=== PATIENT | male | born 1935 | race Caucasian/White ===

== ENCOUNTER 2019-07-16 05:29 | Day surgery (SDC) | payer OTHER ==
[~2019-07-16] VITALS: Ht 165.1 cm; Wt 65.3 kg
[~2019-07-16 05:29] MED LIST: ASPI-231 PO; LINA5TAB PO; LISI-275 PO; PIOG15TA38 PO
[2019-07-16] MEDS ORDERED: ceFAZolin 1GM/50ML 50 ML IV ONE (06:36)
[2019-07-16] MEDS ORDERED: SUCCINYLCHOLINE CHLORIDE 20 MG/ML 10ML VIAL IV ONE (07:01)
[2019-07-16] MEDS ORDERED: ONDANSETRON HCL 4 MG/2 ML VIAL ONE (07:22)
[2019-07-16] MEDS ORDERED: SODIUM CHLORIDE LOCK 10 ML ONE (07:22)
[2019-07-16] MEDS ORDERED: MORPHINE SULFATE INJECTION 1 ML ONE (07:22)
[2019-07-16] MEDS ORDERED: NEOSTIGMINE 1 MG/ML INJ (10mg/10ML VIAL) ONE (07:22)
[2019-07-16] MEDS ORDERED: MIDAZOLAM HCL 1MG/1ML-2 ML VIAL ONE (07:22)
[2019-07-16] MEDS ORDERED: PROPOFOL 10 MG/ML 20 ML IV ONE (07:22)
[2019-07-16] MEDS ORDERED: fentaNYL CITRATE 100 MCG/2 ML VL ONE (07:22)
[2019-07-16] MEDS ORDERED: GLYCOPYRROLATE 0.2 MG/ML 1ML VIAL ONE (07:22)
[2019-07-16] MEDS ORDERED: ROCURONIUM 10MG/ML 10ML VIAL IV ONE (07:22)
[2019-07-16] MEDS ORDERED: fentaNYL CITRATE 10 ML ONE (07:22)
[2019-07-16] MEDS ORDERED: LIDOCAINE 2% (LOCAL ANESTH.) PF 5ml SDV ONE (07:30)
[2019-07-16] MEDS ORDERED: LIDOCAINE HCL 2% TOP JELLY 5ML TOP ONE (07:30)
[2019-07-16] MEDS ORDERED: BUPIVACAINE 0.25% INJ 50ML VIAL ONE (07:36)
[2019-07-16] MEDS ORDERED: fentaNYL CITRATE 100 MCG/2 ML VL IV PRN (07:45)
[2019-07-16] MEDS ORDERED: HYDROmorphone HCL 2 MG/ML VL IV PRN (07:45)
[2019-07-16] MEDS ORDERED: ACCU-CHEK COMFORT CURVE STRIP VI ONE (07:45)
[2019-07-16] MEDS ORDERED: MORPHINE SULFATE 4 MG/ML SYR/VIAL IV PRN (07:45)
[2019-07-16] MEDS ORDERED: METOCLOPRAMIDE HCL 5MG/ml INJ 2ml VIAL IV PRN (07:45)
[2019-07-16 11:09] VITALS: BP 140/75
== END 2019-07-16 11:23 | disposition home or self-care (01) ==
LOC: SUR 05:29
PROVIDERS: ATTEND Orthopaedic Surgery
DX: M75.121 Complete rotator cuff tear or rupture of right shoulder, not specified as traumatic (principal); M75.41 Impingement syndrome of right shoulder; D16.01 Benign neoplasm of scapula and long bones of right upper limb; M75.01 Adhesive capsulitis of right shoulder; M19.011 Primary osteoarthritis, right shoulder; M65.811 Other synovitis and tenosynovitis, right shoulder; M75.51 Bursitis of right shoulder; M89.8X1 Other specified disorders of bone, shoulder; I12.9 Hypertensive chronic kidney disease with stage 1 through stage 4 chronic kidney disease, or unspecified chronic kidney disease; E11.22 Type 2 diabetes mellitus with diabetic chronic kidney disease; N18.4 Chronic kidney disease, stage 4 (severe); I25.10 Atherosclerotic heart disease of native coronary artery without angina pectoris; E11.40 Type 2 diabetes mellitus with diabetic neuropathy, unspecified; Z79.82 Long term (current) use of aspirin; Z79.4 Long term (current) use of insulin; Z79.899 Other long term (current) drug therapy; Z88.8 Allergy status to other drugs, medicaments and biological substances; Z95.5 Presence of coronary angioplasty implant and graft; Z86.19 Personal history of other infectious and parasitic diseases
CPT/HCPCS: 23076; 23130; 23180; 23412; 82962; 88304; J0330; J0690; J2001; J2250; J2270; J2405; J2704; J3010; J3490

== ENCOUNTER 2020-09-01 22:02 | Inpatient (IN) | payer OTHER ==
[~2020-09-01] VITALS: Ht 177.8 cm; Wt 55.5 kg
[2020-09-02 01:22] LABS: Basophils # (auto) 0 10 ^3/uL (0-0.2); Basophils % (auto) 0.3 % (0.0-2.0); Eosinophils # (auto) 0.1 10 ^3/uL (0-0.8); Hematocrit 42.1 % (41.0-53.0); Hemoglobin 13.9 g/dL (13.5-17.5); Mean Corpuscular Hemoglobin 32.4 pg (28.0-32.0); Mean Corpuscular Volume 98.1 fL (80.0-100.0); Monocytes % (auto) 15.7 % (0.0-12.0); Neutrophils # (auto) 4.3 10 ^3/uL (1.6-8.6); Nucleated Red Blood Cells % 0.1 %; Platelet Count (auto) 195 10^3/uL (140-450); Red Blood Cells 4.29 10^6/uL (4.5-5.90); Red Cell Distribution Width 14.3 % (11.8-14.3); White Blood Cell 6.4 10^3/uL (4.4-10.8)
[2020-09-02 01:31] LABS: Alanine Aminotransferase 29 U/L (16-61); Albumin 3.6 g/dL (3.4-5.0); Anion Gap 7 (5-15); Aspartate Aminotransferase 24 U/L (15-37); BUN/Creatinine Ratio 18.1; Blood Urea Nitrogen 43 mg/dL (7-18); Calcium 9.2 mg/dL (8.5-10.1); Carbon Dioxide 26 mmol/L (21-32); Chloride 100 mmol/L (98-107); GFR African American 34 mL/min; GFR Non-African American 28 mL/min; Glucose 252 mg/dL (74-106); Magnesium 1.9 mg/dL (1.6-2.6); Potassium 4.9 mmol/L (3.5-5.1); Sodium 133 mmol/L (136-145)
[2020-09-02 01:36] LABS: Alkaline Phosphatase 67 U/L (45-117); Bilirubin, Total 0.4 mg/dL (0.2-1.0); INR 1.02 (0.9-1.15); Partial Thromboplastin Time 33.8 sec (23.0-31.2); Total Protein 8.6 g/dL (6.4-8.2)
[2020-09-02 02:59] LABS: CRP High Sensitivity 4.52 mg/dL (< 0.3)
[2020-09-02] MEDS ORDERED: NITROGLYCERIN 0.4 MG SL TAB SL PRN (05:15)
[2020-09-02] MEDS ORDERED: ONDANSETRON HCL 4 MG/2 ML VIAL IV PRN (05:15)
[2020-09-02] MEDS ORDERED: MORPHINE SULF INJ 2 MG/ML SYRINGE 1ML IV PRN (05:15)
[2020-09-02] MEDS: DOXYCYCLINE 100MG/250ML 250 ML IV SCH ×2 (06:46→18:00)
[2020-09-02] MEDS: ALBUTEROL SULF HFA 90MCG INH 200DOSE IN SCH ×3 (08:18→22:53)
[2020-09-02] MEDS ORDERED: ENOXAPARIN SOD 30 MG/0.3 ML SYRINGE SC SCH (10:00)
[2020-09-02] MEDS ORDERED: DexAMETHasone SOD PHOS 10MG/1ML VIAL INJ IV SCH (10:00)
[2020-09-02] MEDS ORDERED: LISINOPRIL 5 MG TAB PO SCH (10:00)
[2020-09-02] MEDS: FAMOTIDINE 20 MG TAB PO SCH (10:14)
[2020-09-02] MEDS: CHOLECALCIFEROL (VITD3) 2,000 UNIT CAP PO SCH (10:14)
[2020-09-02] MEDS: ZINC SULFATE 220mg CAP or TAB PO SCH (10:15)
[2020-09-02] MEDS: ASCORBIC ACID 1,000 MG TAB PO SCH (10:15)
[2020-09-02 10:25] VITALS: BP 128/60
[2020-09-02 17:56] LABS: Urine Bacteria NONE SEEN /hpf (None Seen); Urine Blood Negative /uL (Negative); Urine Specific Gravity 1.016 (1.001-1.035); Urine WBC None Seen /hpf (0 - 3)
[2020-09-02 18:17] LABS: Creatinine, Urine 64 mg/dL (30.0-125.0); Sodium Urine 71 mmol/L (40-220)
[2020-09-02 20:34] VITALS: BP 148/98
--- NOTE | 2020-09-02 20:34 | NUR ---
Telemetry admit from ER DANIELLÓPEZALFONZO HUDDLESTON admitted to Telemetry unit after NO SBAR received. Patient oriented to REYNOLD KNIGHT RN primary RN, unit, room, bed, and unit policies regarding patient care and visiting hours. Patient now on continuous telemetry monitoring, tele box # 16 and telemetry reading on arrival to unit is ST 120. Patient denies sob distress or pain. elevated heart rate when ambulating. at rest heart rate 96bom. Patient weighed by bedscale and encouraged to call if they need something. All questions and concerns addressed, patient verbalized understanding. Fall precautions in place
[2020-09-02] MEDS: ENOXAPARIN SOD 30 MG/0.3 ML SYRINGE SC SCH (21:27)
[2020-09-02] MEDS: ATORVASTATIN 20 MG TAB PO SCH (21:27)
--- NOTE | 2020-09-02 21:27 | NUR ---
Patient refused medication scheduled per patient " i want to wait until i give you my list of medications i do not want to double up on them" patient educated on benefits and risks pf medications and reasons for medication. Patient verbalized understanding. will wait until patient provide list of home medications as he can not remember name and dosage of medications at this time. Per patient he will provide list of medications.
[2020-09-02 22:00] VITALS: BP 153/98
--- NOTE | 2020-09-02 22:53 | NUR ---
Respiratory note: PT CURRENTLY ON RA. PT REFUSED MDI TX. NO RESP DISTRESS NOTED. SPO2 93%, HR 76, RR 18. BS CLEAR/DIMINISHED. PT AWARE TO CALL IF SOB.
--- NOTE | 2020-09-03 00:48 | NUR ---
Patient educated on how to use Incentive spirometer patient verbalized understanding.
--- NOTE | 2020-09-03 03:38 | NUR ---
Patient bed alarm rang. Upon entering room patient is standing and stated " i need a drink" educated patient to call for assistance as he has unsteady gait and can fall. patient became upset and yelled " leave me alone!" patient informed to not yell. Patient was reeducated on benefits and risks of having bed alarm on to prevent falls and to call for assistance. Patient verbalized understanding. Bed alarm and fall precautions in place.
--- NOTE | 2020-09-03 05:13 | NUR ---
Bed alarm rang. Upon entering room patient is trying to get out of bed and patient removed IV. Patient IV catheter tip is intact. dressing applied to area. denies sob distress or pain. Patient assisted back in bed. Bed alarm on and fall precautions in place.
[2020-09-03] MEDS: DOXYCYCLINE 100MG/250ML 250 ML IV SCH (05:37)
[2020-09-03 06:00] VITALS: BP 124/52
[2020-09-03 06:21] LABS: Basophils # (auto) 0 10 ^3/uL (0-0.2); Basophils % (auto) 0.2 % (0.0-2.0); Eosinophils # (auto) 0 10 ^3/uL (0-0.8); Hematocrit 40.2 % (41.0-53.0); Lymphocytes # (auto) 0.8 10 ^3/uL (0.4-5.4); Lymphocytes % (auto) 15.9 % (10.0-50.0); Mean Corpuscular Hemoglobin 32.1 pg (28.0-32.0); Mean Corpuscular Hgb Conc. 32.3 g/dL (32.0-36.0); Mean Corpuscular Volume 99.4 fL (80.0-100.0); Monocytes # (auto) 0.9 10 ^3/uL (0-1.3); Monocytes % (auto) 18.3 % (0.0-12.0); Neutrophils # (auto) 3.2 10 ^3/uL (1.6-8.6); Neutrophils % (auto) 65.6 % (37.0-80.0); Nucleated Red Blood Cells % 0.1 %; Platelet Count (auto) 167 10^3/uL (140-450); Red Blood Cells 4.04 10^6/uL (4.5-5.90); Red Cell Distribution Width 14.1 % (11.8-14.3); White Blood Cell 4.8 10^3/uL (4.4-10.8)
[2020-09-03 06:42] LABS: Albumin 3.1 g/dL (3.4-5.0); Calcium 8.9 mg/dL (8.5-10.1); Potassium 4.7 mmol/L (3.5-5.1)
[2020-09-03 06:50] LABS: BUN/Creatinine Ratio 24.6; Bilirubin, Total 0.4 mg/dL (0.2-1.0); CRP High Sensitivity 5.3 mg/dL (< 0.3); Total Protein 7.5 g/dL (6.4-8.2)
--- NOTE | 2020-09-03 07:10 | NUR ---
Report given to dayshift rn patient denies sob distress or pain
[2020-09-03] MEDS: ALBUTEROL SULF HFA 90MCG INH 200DOSE IN SCH ×3 (07:39→22:15)
[2020-09-03] MEDS ORDERED: REPA1TAB5 PO (09:17)
[2020-09-03] MEDS ORDERED: SIMV-8 PO (09:17)
[2020-09-03] MEDS ORDERED: GENTAMICIN OPTH sol 0.3% 5ml RIGHTEYE ONE (10:00)
[2020-09-03] MEDS ORDERED: OFLOXACIN OTIC(EAR) 0.3 % DROP 5ML OT ONE (10:00)
[2020-09-03] MEDS: FAMOTIDINE 20 MG TAB PO SCH (10:46)
[2020-09-03] MEDS: ZINC SULFATE 220mg CAP or TAB PO SCH (10:46)
[2020-09-03] MEDS: ENOXAPARIN SOD 30 MG/0.3 ML SYRINGE SC SCH ×2 (10:47→22:15)
[2020-09-03] MEDS: ASCORBIC ACID 1,000 MG TAB PO SCH (10:47)
[2020-09-03] MEDS: CHOLECALCIFEROL (VITD3) 2,000 UNIT CAP PO SCH (10:47)
--- NOTE | 2020-09-03 12:22 | NUR ---
waiting on pharmacy delivery for eye drops for patient.
[2020-09-03 13:00] VITALS: BP 136/73
--- NOTE | 2020-09-03 14:00 | NUR ---
patient attempting to get out of bed, patient walked into hallway stating he is looking for his wallet and clothes which he did not come with. attempted to orient patient but he just kept rambling. asked patient where he was he told me location, stated year, and name just did not know why he was here. Helped patient back to bed. applied bed alarm.
--- NOTE | 2020-09-03 14:21 | NUR ---
ERNESTO family contact sade lei, states patient has history of brain bleed 2 years ago which started his confusion, patient has family history of alzheimers as well. patient also has decreased kidney function which he had an appointment to see wood tank erector.
--- NOTE | 2020-09-03 14:30 | NUR ---
Patient attempted to leave room again refusing to go back to his bed. after redirecting patient went back to room. patient oriented x3. bed alarm applied.
--- NOTE | 2020-09-03 14:38 | NUR ---
patient attempted to get up out of bed again walking in hallway. helped back to bed applied alarm.
--- NOTE | 2020-09-03 14:40 | NUR ---
charge notified of patient attempting to walk without assistance.
--- NOTE | 2020-09-03 14:50 | NUR ---
Patient moved to 44-5 with sitter.
[2020-09-03] MEDS ORDERED: ALLO100T PO (15:02)
[2020-09-03] MEDS: LORazepam 2MG/ML-1ML VIAL IV PRN (16:15)
[2020-09-03] MEDS ORDERED: HALOPERIDOL LACTATE 5 MG/ML INJ VIAL IM PRN (16:15)
[2020-09-03] MEDS: DOXYCYCLINE 100 MG TAB/CAP PO SCH (17:22)
--- NOTE | 2020-09-03 17:39 | NUR ---
Patient very confused, a&o x1 self. Patient family states patient does get increased confusion at night time.
[2020-09-03 18:09] VITALS: BP 141/99
--- NOTE | 2020-09-03 19:30 | NUR ---
OPENING SHIFT NOTE Assumed care of patient who is alert and oriented x2, calm and following commands. Patient has a sitter bedside. Currently on RA with no S/S of distress or SOB noted at this time. Patient is incontinent, linens dry and clean. POC discussed with patient, reinforcement needed. Bed is locked in lowest position, side rails up x3, alarm on. Call light is within reach, patient and sitter are encouraged to call for assistance as needed. Will continue to monitor PRN/Q1hr.
[2020-09-03 22:00] VITALS: BP 139/86
[2020-09-03] MEDS: ATORVASTATIN 20 MG TAB PO SCH (22:15)
[2020-09-03] MEDS: SODIUM CHLORIDE 0.9% 1,000 ML IV SCH (23:45)
--- NOTE | 2020-09-04 00:15 | NUR ---
MARKUS BEDSIDE No new orders at this time.
[2020-09-04 05:00] VITALS: BP 170/72
[2020-09-04] MEDS: DOXYCYCLINE 100 MG TAB/CAP PO SCH ×2 (06:12→17:21)
[2020-09-04] MEDS: ALBUTEROL SULF HFA 90MCG INH 200DOSE IN SCH ×3 (06:49→22:07)
--- NOTE | 2020-09-04 07:18 | NUR ---
CARE ENDORSED TO DAY SHIFT RN
[2020-09-04 07:34] LABS: Phosphorus 3.1 mg/dL (2.5-4.90); Uric Acid 6.7 mg/dL (3.5-7.2)
[2020-09-04 09:00] VITALS: BP 144/81
[2020-09-04] MEDS: CHOLECALCIFEROL (VITD3) 2,000 UNIT CAP PO SCH (10:19)
[2020-09-04] MEDS: ASCORBIC ACID 1,000 MG TAB PO SCH (10:19)
[2020-09-04] MEDS: ENOXAPARIN SOD 30 MG/0.3 ML SYRINGE SC SCH ×2 (10:19→21:49)
[2020-09-04] MEDS: ZINC SULFATE 220mg CAP or TAB PO SCH (10:19)
[2020-09-04] MEDS: FAMOTIDINE 20 MG TAB PO SCH (10:19)
--- NOTE | 2020-09-04 11:16 | NUR ---
patient refusing to wear tele box, dr dawson. Will attempt to reapply.
[2020-09-04 13:00] VITALS: BP 132/71
--- NOTE | 2020-09-04 16:46 | NUR ---
per Dr barger patient will transfer to SNF tomorrow.
[2020-09-04] MEDS: SODIUM CHLORIDE 0.9% 1,000 ML IV SCH (16:48)
[2020-09-04 17:00] VITALS: BP 124/69
[2020-09-04] MEDS: ATORVASTATIN 20 MG TAB PO SCH (21:48)
[2020-09-04 22:00] VITALS: BP 126/78
[2020-09-05 05:00] VITALS: BP 127/75
[2020-09-05] MEDS: DOXYCYCLINE 100 MG TAB/CAP PO SCH ×2 (05:38→18:28)
[2020-09-05] MEDS: ALBUTEROL SULF HFA 90MCG INH 200DOSE IN SCH ×3 (06:00→21:36)
--- NOTE | 2020-09-05 07:30 | NUR ---
Care endorsed to AM RN.NO sob or distress noted.
[2020-09-05 08:05] LABS: Calcium 9.1 mg/dL (8.5-10.1); Potassium 4.6 mmol/L (3.5-5.1)
[2020-09-05 08:08] LABS: BUN/Creatinine Ratio 32.6
[2020-09-05 09:05] VITALS: BP 121/72
--- NOTE | 2020-09-05 09:10 | NUR ---
Nicholas RAYMOND ROUNDING AT BEDSIDE. INFORMED OF PATIENT STATUS. INFORMED OF BUN TRENDING UP. NO NEW ORDERS RECEIVED.
[2020-09-05] MEDS: ZINC SULFATE 220mg CAP or TAB PO SCH (09:39)
[2020-09-05] MEDS: ASCORBIC ACID 1,000 MG TAB PO SCH (09:39)
[2020-09-05] MEDS: FAMOTIDINE 20 MG TAB PO SCH (09:39)
[2020-09-05] MEDS: CHOLECALCIFEROL (VITD3) 2,000 UNIT CAP PO SCH (09:39)
[2020-09-05] MEDS: ENOXAPARIN SOD 30 MG/0.3 ML SYRINGE SC SCH ×2 (09:39→21:37)
[2020-09-05 10:29] VITALS: BP 121/72
[2020-09-05] MEDS: SODIUM CHLORIDE 0.9% 1,000 ML IV SCH (11:05)
[2020-09-05 13:00] VITALS: BP 124/70
--- NOTE | 2020-09-05 13:10 | NUR ---
PAGEJacquie POLLOCK FOR PT EVAL.
--- NOTE | 2020-09-05 15:26 | NUR ---
PAGED Nicholas RAYMOND TO INFORM THAT NO PT EVALUATION IS DONE FOR SNF TRANSFER. INFORMED THAT ORDER HAS BEEN ENTERED AND PT PAGED.
--- NOTE | 2020-09-05 16:05 | NUR ---
REPAGED PT FOR PT EVAL.
--- NOTE | 2020-09-05 16:21 | NUR ---
SPOKE TO MARIS WHO STATED HE HAS SEEN PATIENT ANS WILL PUT IN NOTE. SPOKE TO TECHNICAL SPEC KATHARINA WHO STATED SHE WILL START WORKING ON TRANSFER.
[2020-09-05 17:00] VITALS: BP 148/60
--- NOTE | 2020-09-05 17:14 | NUR ---
Weekend brain surgeon-I received a page from nurse Pimentel letting me know that there is an order for this patient to discharge to SNF today. I faxed SNF order and clinical packet to [facility], [facility] and [facility].
[2020-09-05] MEDS: LORazepam 2MG/ML-1ML VIAL IV PRN (19:50)
[2020-09-05] MEDS: ATORVASTATIN 20 MG TAB PO SCH (21:37)
[2020-09-05 22:00] VITALS: BP 145/98
--- NOTE | 2020-09-05 23:26 | NUR ---
Dr. Carlin Jaramillo by bedside. Aware of elevated BUN and Cr. New orders for repeat covid inhouse test.
--- NOTE | 2020-09-06 01:15 | NUR ---
Covid 19 inhouse test walked down to lab
[2020-09-06] MEDS: SODIUM CHLORIDE 0.9% 1,000 ML IV SCH (01:45)
[2020-09-06 05:00] VITALS: BP 124/57
[2020-09-06] MEDS: ACETAMINOPHEN 325 MG TAB PO PRN (05:39)
[2020-09-06] MEDS: DOXYCYCLINE 100 MG TAB/CAP PO SCH ×2 (05:39→17:56)
--- NOTE | 2020-09-06 05:39 | NUR ---
Temp is 101.4 Cooling measures applied, acetaminophen given. Will Reassess.
[2020-09-06] MEDS: ALBUTEROL SULF HFA 90MCG INH 200DOSE IN SCH ×3 (06:11→23:00)
--- NOTE | 2020-09-06 06:39 | NUR ---
Temp is 98.9 Pt is resting in bed, with no sign of distress. Bed lowest position. HOB elevated 30degrees.
[2020-09-06 06:45] LABS: Hematocrit 41.1 % (41.0-53.0); Hemoglobin 13.6 g/dL (13.5-17.5); Mean Corpuscular Hemoglobin 32.1 pg (28.0-32.0); Mean Corpuscular Volume 97.3 fL (80.0-100.0); Platelet Count (auto) 175 10^3/uL (140-450); Red Blood Cells 4.22 10^6/uL (4.5-5.90); White Blood Cell 5.3 10^3/uL (4.4-10.8)
[2020-09-06 06:56] LABS: Band Neutrophils % (manual) 0; Basophils % (manual) 0 (0.0-2.0); Blast Cells 0; Metamyelocytes % 0; Myelocytes % 0; Promyelocytes % 0; Reactive Lymphocytes 0
[2020-09-06 07:11] LABS: Albumin 3.3 g/dL (3.4-5.0); Calcium 9.2 mg/dL (8.5-10.1); Potassium 4.5 mmol/L (3.5-5.1)
[2020-09-06 07:23] LABS: BUN/Creatinine Ratio 32.2; Bilirubin, Total 0.6 mg/dL (0.2-1.0); CRP High Sensitivity 8.96 mg/dL (< 0.3); Total Protein 8.1 g/dL (6.4-8.2)
--- NOTE | 2020-09-06 07:54 | NUR ---
SPOKE TO ERNESTO ARVIZU. PER [facility] SHE DOES NOT WANT PATIENT TO GO [place]. SHE WOULD LIKE THE PATIENT TO STAY [place] THE [place].
[2020-09-06 07:55] LABS: Eosinophils % (manual) 1 (0-7); Lymphocytes % (manual) 8 (10.0-50.0); Monocytes % (manual) 14 (0-12)
[2020-09-06 08:52] VITALS: BP 118/67
--- NOTE | 2020-09-06 09:02 | NUR ---
Nicholas RAYMOND AT BEDSIDE. INFORMED OF PATIENT TEMPERATURE OF 101.5 AND OF CONVERSATION WITH LUH OROZCO REGARDING PLACEMENT. NO NEW ORDERS RECEIVED.
[2020-09-06] MEDS: FAMOTIDINE 20 MG TAB PO SCH (09:36)
[2020-09-06] MEDS: ZINC SULFATE 220mg CAP or TAB PO SCH (09:36)
[2020-09-06] MEDS: ASCORBIC ACID 1,000 MG TAB PO SCH (09:38)
[2020-09-06] MEDS: CHOLECALCIFEROL (VITD3) 2,000 UNIT CAP PO SCH (09:38)
[2020-09-06] MEDS: ENOXAPARIN SOD 30 MG/0.3 ML SYRINGE SC SCH ×2 (09:38→21:54)
--- NOTE | 2020-09-06 11:13 | NUR ---
Nutrition Assessment Est energy needs 2650-2068 kcal (30-35 kcal/kg BW 55.5k) Est protein needs 56-67g (1-1.2g/kg BW 55.5kg) Will monitor and reassess prn. Addendum: 09/06/20 at [address] Amended: Links added.
--- NOTE | 2020-09-06 12:31 | NUR ---
I called [facility] to check on bed availability/possible acceptance of this patient-no answer-will try again. I spoke with nurse Margarito to update him-he said POA just wants patient placed up here, does not want him to go down the hil-I let Margarito know that [facility] is the only place up here that is contracted with patient's insurance.
--- NOTE | 2020-09-06 12:34 | NUR ---
SPOKE TO KATHARINA FROM CASE MANAGEMENT. STATED SHE WOULD ATTEMPT TO GET IN CONTACT WITH [facility].
[2020-09-06 13:00] VITALS: BP 117/74
--- NOTE | 2020-09-06 13:16 | NUR ---
I called [facility] and left message for Admission asking about bed availability/possible acceptance of this patient.
[2020-09-06 17:00] VITALS: BP 126/76
--- NOTE | 2020-09-06 20:00 | NUR ---
Pt Activity and diet Pt experiencing confusion. Pt reoriented. No complaints. Pt refusing to eat dinner 25% only consumed. Pt stating he has no appetite.
[2020-09-06] MEDS: ATORVASTATIN 20 MG TAB PO SCH (21:53)
[2020-09-06 22:00] VITALS: BP 147/82
[2020-09-07 05:00] VITALS: BP 149/88
[2020-09-07] MEDS: ALBUTEROL SULF HFA 90MCG INH 200DOSE IN SCH ×3 (06:34→22:00)
--- NOTE | 2020-09-07 07:30 | NUR ---
Opening Shift Note Assumed patient care from NOC RN. Patient currently sitting up in bed, no signs of distress at this time on 1L nasal cannula. Patient is AOx3 at this time. Respirations even and unlabored, denying shortness of breath at this time. Safety precautions (including sitter) in place. Call light within reach. Will continue to monitor q1hr and PRN.
[2020-09-07 09:18] VITALS: BP 154/89
--- NOTE | 2020-09-07 10:00 | NUR ---
BM Patient had large bowel movement. Patient cleaned and linens changed by sitter. Patient currently out of bed to chair. No signs of distress at this time. Will continue to monitor q1hr and PRN.
[2020-09-07] MEDS: ZINC SULFATE 220mg CAP or TAB PO SCH (10:05)
[2020-09-07] MEDS: CHOLECALCIFEROL (VITD3) 2,000 UNIT CAP PO SCH (10:06)
[2020-09-07] MEDS: ASCORBIC ACID 1,000 MG TAB PO SCH (10:06)
[2020-09-07] MEDS: FAMOTIDINE 20 MG TAB PO SCH (10:06)
[2020-09-07] MEDS: ENOXAPARIN SOD 30 MG/0.3 ML SYRINGE SC SCH ×2 (10:07→21:23)
--- NOTE | 2020-09-07 11:30 | NUR ---
Up with PT Patient ambulated with physical therapist from bed to end of hallway and back.
--- NOTE | 2020-09-07 11:41 | NUR ---
Paged SS Paged Yisel SS, regarding SNF placement.
--- NOTE | 2020-09-07 11:49 | NUR ---
at Bedside Dr. Jasso at bedside. No new orders at this time. SNF placement pending.
[2020-09-07 13:00] VITALS: BP 132/91
--- NOTE | 2020-09-07 14:34 | NUR ---
Paged SS Paged [facility] SS, regarding pending SNF placement.
--- NOTE | 2020-09-07 14:43 | NUR ---
SS Spoke with Miranda. Per Jie Jean, JESUS will update on patient pending status.
--- NOTE | 2020-09-07 14:55 | NUR ---
JESUS Spoke with JESUS Ceron. Per Jie, will follow up with [facility] regarding pending SNF placement.
--- NOTE | 2020-09-07 15:00 | NUR ---
Respiratory note: MDI MISSED DUE TO NO THERAPIST AVAILABLE. PT IN NO DISTRESS AT THIS TIME. PT AWARE TO HAVE RT PAGED IF SOB.
--- NOTE | 2020-09-07 15:21 | NUR ---
I re-faxed SNF order/clinical packet to [facility].
[2020-09-07 17:00] VITALS: BP 143/79
--- NOTE | 2020-09-07 17:00 | NUR ---
IV IV attempt unsuccessful x2. Will attempt at later time. Safety precautions in place, including sitter. Will continue to monitor q1hr and PRN.
--- NOTE | 2020-09-07 18:23 | NUR ---
Family Family updated on plan of care. PW confirmed, all questions answered.
--- NOTE | 2020-09-07 20:00 | NUR ---
Opening Shift Note Assumed care of patient, awake and alert. No S/S of distress/SOB or pain noted. Instructed on POC and to call for assist PRN. Bed is in lowest locked position and call light is within reach of the patient. Sitter is at the bedside for safety.
[2020-09-07] MEDS: ACETAMINOPHEN 325 MG TAB PO PRN (21:22)
[2020-09-07] MEDS: ATORVASTATIN 20 MG TAB PO SCH (21:23)
[2020-09-07 21:52] VITALS: BP 156/72
[2020-09-08] MEDS: ACETAMINOPHEN 325 MG TAB PO PRN ×2 (04:40→19:00)
[2020-09-08 05:21] VITALS: BP 157/90
[2020-09-08] MEDS: ALBUTEROL SULF HFA 90MCG INH 200DOSE IN SCH ×3 (06:17→21:57)
--- NOTE | 2020-09-08 07:30 | NUR ---
Opening Shift Note Assumed patient care from NOC RN. Patient currently resting in bed with eyes closed. No signs of distress at this time. Respirations even and unlabored. Will continue to monitor q1hr and PRN, sitter is at bedside with safety precautions in place.
[2020-09-08 07:41] LABS: BUN/Creatinine Ratio 33.9; Calcium 8.7 mg/dL (8.5-10.1); Potassium 4.6 mmol/L (3.5-5.1)
[2020-09-08 07:44] LABS: Bilirubin, Total 0.6 mg/dL (0.2-1.0); Total Protein 8.1 g/dL (6.4-8.2)
--- NOTE | 2020-09-08 08:33 | NUR ---
Assessment Patient is a 84 year old male, patient was unable to participate in initial assessment. SW called ex- (Kiera [phone]), who is appointed POA. Per Kiera, prior to being admitted to [facility], patient is alert and orient and cognitive abilities were intact. Per Kiera, Patient can do all ADL's and ambulate independently, patient lives with Kiera, their daughter, and Kiera's . Per Kiera patient has history of being a diabetic and kidney problem (per Kiera, patient is not on dialysis). Per Kiera, patient will return home post discharge from [facility]. Per Kiera, patient has POA filed at [facility]. Discharge planning: Patient will return home post discharge, patient will follow up with PCP post discharge. Patient has all diabetic supplies for home care, patient will resume diabetic care post discharge. There are no other discharge needs to address at the moment. Addendum: 09/08/20 at 0844 by WILMER LEE Amended: Links added.
[2020-09-08] MEDS: ASCORBIC ACID 1,000 MG TAB PO SCH (09:17)
[2020-09-08] MEDS: FAMOTIDINE 20 MG TAB PO SCH (09:17)
[2020-09-08] MEDS: CHOLECALCIFEROL (VITD3) 2,000 UNIT CAP PO SCH (09:17)
[2020-09-08] MEDS: ZINC SULFATE 220mg CAP or TAB PO SCH (09:17)
[2020-09-08] MEDS: ENOXAPARIN SOD 30 MG/0.3 ML SYRINGE SC SCH ×2 (09:18→19:00)
--- NOTE | 2020-09-08 14:17 | NUR ---
I faxed SNF packet to [facility] [phone].
--- NOTE | 2020-09-08 14:49 | NUR ---
Called [facility] [phone] and spoke with Brandi in customer service and stated that we do not have to have authorization for non emergent or emergent transportation for the patient. [facility] for [facility] for the [facility] to their facility, Gave the number for [facility] [phone]. Called and made Miranda QUINTERO aware.
--- NOTE | 2020-09-08 15:57 | NUR ---
JESUS Spoke with JESUS Jean. Per RADHA Jean placed on will call.
--- NOTE | 2020-09-08 16:00 | NUR ---
Called [facility] [phone] spoke with Gila in provider care gave update on the patient and gave, authorization for the patient to go to [facility] [id number].
--- NOTE | 2020-09-08 16:20 | NUR ---
D/C Planning Placed follow up called to [facility] spoke to Burton advising her MD order has been re-faxed and if they can accept patient. Per Burton with [facility] they can accept patient but will need an authorization from [facility]. Informed Burton per [facility] patient health plan is requesting for accepting facility to contact them directly. Received a follow up called from Burton advising me she spoke to Ilan with [facility] and was given a reference # [id number] and for [facility] to follow up in regards of the authorization. Pending authorization from health [facility]. [facility] Ph: [phone] is ON WILL CALL.
--- NOTE | 2020-09-08 16:40 | NUR ---
Called [facility] [phone] spoke with Anu director of integrated marketing , gave the authorization for the facility [id number], for the transfer, who gave a bed for the patient, Room 203 Bed 1
--- NOTE | 2020-09-08 16:50 | NUR ---
Called the Nurse Crissy and gave her the room 203 and Bed 1, for the transfer, explain that [facility] is on Will Call [phone] , and the number for [facility] [phone]
[2020-09-08 18:17] VITALS: BP 125/79
[2020-09-08] MEDS: ATORVASTATIN 20 MG TAB PO SCH (19:00)
--- NOTE | 2020-09-08 19:11 | NUR ---
Called [facility] Spoke to RADHA Smallwood. 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
--- NOTE | 2020-09-08 19:21 | NUR ---
Report Called report to [facility]. Report given to KEISHA Cowan.
--- NOTE | 2020-09-08 19:30 | NUR ---
Temperature Reassessed Temperature reassessed: 98.5degrees F.
--- NOTE | 2020-09-08 20:00 | NUR ---
Tele Box Tele Box returned. tele teletypesetter monitor aware.
--- NOTE | 2020-09-08 23:14 | NUR ---
Room Transfer Patient transferred to room 245B without incident. Safety precautions in place, including bed alarm. Bed in lowest position. Will continue to monitor q1hr and PRN.
--- NOTE | 2020-09-08 23:16 | NUR ---
Called [facility]. Spoke with RADHA Sam. 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
--- NOTE | 2020-09-08 23:26 | NUR ---
Discharge Discharge instructions given as ordered. Encourage to follow up with PMD as instructed. All questions and concerns addressed. Patient verbalized understanding. Medication reconciliation form completed and copy given to patient. Home medications held in Pharmacy returned to patient, and needed vaccines given. IV removed with catheter intact, pressure dressing applied. Telemetry unit returned to ICU. Patient taken to vehicle via transport personnel with all personal belongings. No distress noted at time of departure. POA/caregiver aware of transfer. Addendum: 09/08/20 at 2330 by LANDEN RESTREPO RN RN Report and discharge paperwork/packet given to [facility] personnel.
== END 2020-09-08 23:26 | DRG 177 ==
LOC: EDBD 22:02 → ER 22:04 → TELE 22:05 → TELE-EAST 09-02 20:35 → TELE-E-ADS 09-03 14:54
PROVIDERS: ADMIT Nurse Practitioner; ATTEND Internal Medicine
DX: U07.1 COVID-19 (principal); J12.89 Other viral pneumonia; N17.0 Acute kidney failure with tubular necrosis; I13.0 Hypertensive heart and chronic kidney disease with heart failure and stage 1 through stage 4 chronic kidney disease, or unspecified chronic kidney disease; Z82.0 Family history of epilepsy and other diseases of the nervous system; Z86.73 Personal history of transient ischemic attack (TIA), and cerebral infarction without residual deficits; Z95.5 Presence of coronary angioplasty implant and graft; F03.90 Unspecified dementia, unspecified severity, without behavioral disturbance, psychotic disturbance, mood disturbance, and anxiety; E11.22 Type 2 diabetes mellitus with diabetic chronic kidney disease; N18.9 Chronic kidney disease, unspecified; E11.9 Type 2 diabetes mellitus without complications
CPT/HCPCS: 36415; 71045; 76775; 80048; 80053; 81001; 82306; 82570; 82728; 83036; 83605; 83615; 83735; 83880; 83970; 84100; 84300; 84484; 84550; 85007; 85025; 85027; 85379; 85610; 85730; 86141; 87040; 87426; 94640; 97110; 97116; 97163; 97530; G0378; J1100; J3490